=== PATIENT | male | born 1985 | race Caucasian/White ===

== ENCOUNTER 2021-03-02 00:28 | Observation (INO) ==
[2021-03-02] MEDS ORDERED: ONDANSETRON 4 MG/2 ML VIAL IV STA (01:34)
[2021-03-02] MEDS ORDERED: SODIUM CHLORIDE 0.9% 1,000 ML IV STA (01:34)
[2021-03-02 02:20] LABS: Basophils % 0.3 % (0.0-0.8); Hematocrit 45.4 VOL% (42.0-52.0); Hemoglobin 15.8 GM/DL (14.0-18.0); Immature Granulocytes % 0.5 %; Immature Granulocytes Absolute 0.04 #; Lymphocytes # 1.4 10*3/uL (1.4-4.0); Lymphocytes % 19.3 % (21.2-54.2); Mean Corpuscular HGB Conc 34.8 GM/DL (32-36); Mean Corpuscular Volume 87.5 FL (87-102); Monocytes % 11.2 % (1.7-12.7); Neutrophils % 68.7 % (38.7-73.9); Platelet Count 139 T/CUMM (130-400); Red Blood Count 5.19 MC/CUMM (3.8-5.5); Red Cell Distribution Width 11.8 % (9.3-17.3); White Blood Count 7.4 T/CUMM (4-12)
[2021-03-02 02:47] LABS: Bilirubin,Total 0.7 MG/DL (0.20-1.00); Calcium 8.5 MG/DL (8.5-10.1); Osmolality,Calculated 257.9 MOS/KG (273-304); Potassium 3.8 MMOL/L (3.5-5.1)
[2021-03-02] MEDS ORDERED: AZITHROMYCIN INJ 500 MG in SODIUM CHLORIDE 0.9% 250 ML IV STA (03:06)
[2021-03-02] MEDS ORDERED: DEXTROSE 50% 25 GM/50 ML VIAL IV PRN (04:49)
[2021-03-02] MEDS ORDERED: GLUCAGON 1 MG VIAL IM PRN (04:49)
[2021-03-02] MEDS ORDERED: ACETAMINOPHEN 325 MG TABLET PO PRN (04:55)
[2021-03-02] MEDS ORDERED: ONDANSETRON 4 MG/2 ML VIAL IV PRN (04:55)
[2021-03-02] MEDS ORDERED: guaiFENesin/DM ER 600-30 MG TABLET PO PRN (04:55)
[2021-03-02] MEDS ORDERED: POTASSIUM CHLORIDE RIDER 10 MEQ/100 ML PREMIX IV PRN (04:58)
[2021-03-02] MEDS ORDERED: POTASSIUM CHLORIDE 20 MEQ TABLET PO PRN (04:58)
[2021-03-02] MEDS ORDERED: MELATONIN 3 MG TABLET PO PRN (05:03)
[2021-03-02] MEDS: SODIUM CHLORIDE 0.9% 1,000 ML IV SCH ×2 (06:15→18:00)
[2021-03-02] MEDS: ENOXAPARIN 40 MG/0.4 ML SYRINGE SUBCUT SCH (06:22)
[2021-03-02] MEDS: DEXAMETHASONE 4 MG/1 ML VIAL IV SCH (09:35)
[2021-03-02] MEDS: FAMOTIDINE 20 MG TABLET PO SCH (09:35)
[2021-03-02] MEDS: CHOLECALCIFEROL 1,000 UNIT TABLET PO SCH (09:35)
[2021-03-02] MEDS: ZINC GLUCONATE 50 MG TABLET PO SCH (09:35)
[2021-03-02] MEDS: IVERMECTIN 3 MG TABLET PO SCH (09:35)
[2021-03-02] MEDS: CETIRIZINE 10 MG TABLET PO SCH (09:35)
[2021-03-02] MEDS: ASCORBIC ACID 500 MG TABLET PO SCH (09:35)
[2021-03-03] MEDS: SODIUM CHLORIDE 0.9% 1,000 ML IV SCH ×2 (03:11→05:50)
[2021-03-03 03:37] VITALS: BP 112/69
[2021-03-03 04:31] LABS: Basophils % 0.2 % (0.0-0.8); Hematocrit 41.3 VOL% (42.0-52.0); Hemoglobin 14.1 GM/DL (14.0-18.0); Immature Granulocytes % 0.5 %; Immature Granulocytes Absolute 0.04 #; Lymphocytes % 23.9 % (21.2-54.2); Mean Corpuscular HGB Conc 34.1 GM/DL (32-36); Mean Corpuscular Volume 90.6 FL (87-102); Mean Platelet Volume 12.7 FL (9.6-12.0); Monocytes % 11.9 % (1.7-12.7); Neutrophils % 63.5 % (38.7-73.9); Platelet Count 137 T/CUMM (130-400); Red Blood Count 4.56 MC/CUMM (3.8-5.5); Red Cell Distribution Width 12.2 % (9.3-17.3); White Blood Count 8.3 T/CUMM (4-12)
[2021-03-03 04:42] LABS: Calcium 7.7 MG/DL (8.5-10.1); Osmolality,Calculated 275.5 MOS/KG (273-304); Potassium 3.9 MMOL/L (3.5-5.1)
[2021-03-03 04:50] LABS: Ferritin 1349.4 ng/ml (26-388)
[2021-03-03] MEDS: ENOXAPARIN 40 MG/0.4 ML SYRINGE SUBCUT SCH (05:50)
[2021-03-03] MEDS ORDERED: AZITHROMYCIN 250 MG TABLET PO SCH (09:00)
[2021-03-03] MEDS: DEXAMETHASONE 4 MG/1 ML VIAL IV SCH (10:17)
[2021-03-03] MEDS: ZINC GLUCONATE 50 MG TABLET PO SCH (10:18)
[2021-03-03] MEDS: FAMOTIDINE 20 MG TABLET PO SCH ×2 (10:18)
[2021-03-03] MEDS: CHOLECALCIFEROL 1,000 UNIT TABLET PO SCH (10:18)
[2021-03-03] MEDS: ASCORBIC ACID 500 MG TABLET PO SCH ×2 (10:18)
[2021-03-03] MEDS: IVERMECTIN 3 MG TABLET PO SCH (10:18)
[2021-03-03] MEDS: CETIRIZINE 10 MG TABLET PO SCH (10:18)
== END 2021-03-03 13:35 | disposition home or self-care (01) ==
LOC: N.ED 00:28 → N.EDINP 00:28
PROVIDERS: ADMIT Internal Medicine; ATTEND Internal Medicine